=== PATIENT | male | born 1985 | race Caucasian/White ===

== ENCOUNTER 2018-07-26 06:40 | Emergency (ER) | payer MEDICAID, OTHER ==
[~2018-07-26] VITALS: Ht 182.9 cm; Wt 69.9 kg
--- NOTE | 2018-07-26 06:53 | NUR ---
Pt ambulates to room with steady gait and balance. NADN. No defecits observed.
--- NOTE | 2018-07-26 07:03 | NUR ---
First contact with pt. Pt states, "For about a week I have had pain right here (RLQ). It is a 40/10 when I cough. When I am not coughing it's about a 7 or an 8. I started vomitting brown last night. I have diarrhea. I don't really feel nauseas." Pt resting on gurney in hospital gown. Pt provided warm blanket for comfort measures. Pt denies cp, sob, trauma, light headedness, or dizziness. Pt denies abdominal pain upon ED MD palpation. Pt ambulates to restroom with steady gait and balance to provide urine sample. NADN. Pt connected to NIBP and continous pulse ox. All safety measures in place.
--- NOTE | 2018-07-26 07:08 | NUR ---
Pt denies fevers, pain with urination, increase in urine frequency, or blood in urine, stool, or emesis.
--- NOTE | 2018-07-26 07:13 | NUR ---
Pt transported to imaging.
[2018-07-26 07:21] LABS: BASOPHILS # (AUTO) 0.02 x10^3/uL (0-0.1); BASOPHILS % (AUTO) 0 % (0-1); EOSINOPHILS # (AUTO) 0.21 x10^3/uL (0-0.4); EOSINOPHILS % (AUTO) 4 % (1-7); LYMPHOCYTES # (AUTO) 1.82 x10^3/uL (1-3.4); LYMPHOCYTES % (AUTO) 31 % (22-44); MD NO; MEAN CORPUSCULAR HEMOGLOBIN 32.6 pg (27.5-34.5); MEAN CORPUSCULAR HGB CONC 33.3 g/dL (33.2-36.2); MEAN CORPUSCULAR VOLUME 97.8 fL (81-97); MEAN PLATELET VOLUME 7.6 fL (7.4-10.4); MONOCYTES # (AUTO) 0.57 x10^3/uL (0.2-0.8); MONOCYTES % (AUTO) 10 % (2-9); NEUTROPHILS % (AUTO) 55 % (42-75); PLATELET COUNT 401 x10^3/uL (130-400); RED BLOOD COUNT 4.47 x10^6/uL (4.38-5.82); RED CELL DISTRIBUTION WIDTH 13.8 % (9.4-14.8)
[2018-07-26 07:32] LABS: MICROSCOPIC NOT IND
[2018-07-26 07:33] LABS: ALANINE AMINOTRANSFERASE 78 U/L (12-78); ALBUMIN 3.6 g/dL (3.4-5.0); ANION GAP 3 mmol/L (5-15); CALCIUM 8.6 mg/dL (8.5-10.1); CHLORIDE 109 mmol/L (98-107)
[2018-07-26 07:36] LABS: ALKALINE PHOSPHATASE 102 U/L (45-117); BILIRUBIN,TOTAL 0.5 mg/dL (0.2-1.0); CREATININE 0.88 mg/dL (0.7-1.3); TOTAL PROTEIN 7.2 g/dL (6.4-8.2)
[2018-07-26 07:54] LABS: CULTURE INDICATED? NO
--- NOTE | 2018-07-26 09:09 | NUR ---
Patient given discharge instructions and they have confirmed that they understand the instructions. Patient ambulatory with steady gait. Pt and friend left with all personal belongings. Pt left with discharge instructions and prescriptions.
[2018-07-26 09:10] VITALS: BP 91/53
== END 2018-07-26 09:13 | disposition home or self-care (01) ==
LOC: ED 07:58
DX: K52.9 Noninfective gastroenteritis and colitis, unspecified (principal)
CPT/HCPCS: 36415; 74022; 80053; 81003; 83690; 85025; 99284

== ENCOUNTER 2018-08-21 09:45 | Emergency (ER) | payer SELFPAY ==
[~2018-08-21] VITALS: Ht 182.9 cm; Wt 64.4 kg
[2018-08-21 09:48] VITALS: BP 118/75
[2018-08-21] MEDS ORDERED: BACITRACIN ZINC OINT 500U/GM, 0.9 GM ONE (10:26)
== END 2018-08-21 10:34 | disposition home or self-care (01) ==
LOC: ED 10:25
DX: L73.9 Follicular disorder, unspecified (principal); F17.200 Nicotine dependence, unspecified, uncomplicated
CPT/HCPCS: 99283